=== PATIENT | female | born 2000 | race Caucasian/White ===

== ENCOUNTER 2024-03-26 07:54 | Emergency (ER) | payer MEDICAID, SELFPAY ==
[2024-03-26 07:54] VITALS: BP 117/66; PULSE 87; RESP 20; TEMP 36.2; O2SAT 100; BMI 28.9
--- NOTE | 2024-03-26 07:58 | EX.ED.DYSGE1 ---
HPI History of Present Illness Chief Complaint: Cold Sx Informant: patient Onset/Context/Timing Onset: Yesterday Context: Sudden Onset Timing: Continuous Quality: Congested Location: Upper respiratory tract Worsened by: Nothing Relieved by: Nothing Narrative Narrative: Patient presents with cough and congestion that began yesterday. Patient states it began rather suddenly. Patient states it has been constant. Patient admits to some rhinorrhea and sore throat. Patient also admits to some fullness in her ears. Patient admits to some subjective chills but denies any fevers. Patient admits to some nausea but denies any vomiting. Patient states she is coughing up some thick white sputum. Patient denies any chest pain. Patient denies any shortness of breath. Patient states she has been taking [id number]-[id number]-comycnr decongestants with no relief. Patient is also concerned about possible since she has not had a menstrual period this month. Patient denies any abdominal pain. PFSH PFSH Medical History no medical history no medical history Home Medications ?Medication ?Instructions ?Recorded ?Last Taken ?Type NK 03/26/24 Unknown History Allergy/AdvReac Type Severity Reaction Status Date / Time pineapple Allergy Intermediate Rash Verified 03/26/24 08:17 Surgical History Hx of wisdom tooth extraction Hx of section Social History Smoking Status: Current every day smoker tobacco type: cigarettes ROS ROS ED Constitutional Constitutional ED: Reports chills and subjective; Denies fever(s) Eyes Eyes: Reports blurry vision; Denies diplopia ENT ENT ED: Reports ear pain, rhinorrhea and sore throat Cardiovascular Cardiovascular: Denies chest pain or palpitations Respiratory/Chest Respiratory/Chest: Reports cough; Denies dyspnea Gastrointestinal Gastrointestinal: Reports nausea; Denies vomiting Genitourinary Genitourinary ED: Denies dysuria or hematuria Musculoskeletal Musculoskeletal: Reports back pain; Denies neck pain Integumentary Denies abscess or rash Neurologic Neurologic: Denies headache(s) or weakness Allergic/Immunologic Allergic/Immunologic ED: Denies mouth swelling or urticaria EXAM Physical Exam Const Vital Signs: 03/26/24 07:54 03/26/24 08:14 Temperature 97.1 F L Temperature Source Temporal Pulse Rate 87 Respiratory Rate 20 H Respiratory Effort Normal Respiratory Pattern Normal Blood Pressure 117/66 Blood Pressure Mean 83 Pulse Ox 100 Oxygen Delivery Method Room Air Positive well nourished and well developed General Appearance ED: well developed and NAD HEENT Reports TM's clear and moist mucous membranes Tympanic Membrane ED: Yes TM's clear bilateral Neck supple and no JVD Resp normal respiratory effort and clear to auscultation bilaterally Cardio regular rate and regular rhythm GI non-tender and non-distended Palpation: soft Extremity normal to inspection General Extremety ED: Negative for edema or tenderness General Extremity: Negative for edema Neuro oriented x3, CN's II-XII intact bilaterally and no sensory deficits noted Sensorium / Orientation: alert Motor Exam: strength 5/5 throughout Psych mental status grossly normal MDM MDM MDM Narrative Medical decision making narrative: Differential diagnosis includes viral upper respiratory infection, bronchitis, pneumonia, and . Chest x-ray will be obtained to assess for pneumonia and bronchitis. COVID-19, influenza, and RSV PCR will be obtained to assess for viral illness. Urine hCG will be obtained to assess for . Lab Data Attestation: I reviewed the patient's lab results. Lab results narrative: Urine hCG was reviewed and was negative. COVID-19 PCR was reviewed and was negative. Influenza PCR was reviewed and was negative for influenza A and influenza B. RSV PCR was reviewed and was positive. Labs: Laboratory Results - last 24 hr 03/26/24 08:18 Urine Test Negative Radiography Chest X-Ray - ED: 2 View, Read by ED Physician, Read by Radiologist and No Acute Disease Diagnostic Testing: PA and lateral chest x-ray was obtained. There are 2 views. On my independent interpretation, lung agudelo are clear. There is normal cardiac silhouette. Bony thorax is normal. There is no acute process noted. Radiologist also interpreted the x-ray and agrees. Treatment and Re-Evaluation :: Patient was advised of her findings. Patient was advised that this is a viral illness. Patient was instructed to stop smoking. Patient was instructed to follow-up with her primary care physician in 5 to 7 days. Patient instructed to take Tylenol or ibuprofen as needed for any aches or fevers. Patient was instructed to drink plenty of fluids. Patient was instructed return if worse in any way. Patient understood and was agreeable with the plan. All questions were answered. Discharge Plan Triage Chief Complaint: Cold Sx Other Complaint: Female C/O ED Provider: Micky Hanson Dx/Rx/DC Orders Clinical Impression: RSV (respiratory syncytial virus infection), Tobacco use Instructions: ED RSV Bronchiolitis Prescriptions: No Action NK Primary Care Provider: Care Physician,No Primary Referrals: NOT,DEFINED [Non-Staff] - 5-7 Days Print Language: Nicaraguan Disposition Disposition: Home, Self Care
--- NOTE | 2024-03-26 08:26 | RAD_ITS ---
HISTORY: Cough. TECHNIQUE: XR Chest 2 Views. COMPARISON: None. FINDINGS: CARDIOMEDIASTINAL BORDERS: Cardiac silhouette within normal limits in size. Mediastinal contour unremarkable. LUNGS: Radiographically clear. PLEURA: No pleural effusion or pneumothorax seen. OSSEOUS STRUCTURES: Unremarkable. RAD/Chest PA and Lateral IMPRESSION: No acute cardiopulmonary process identified. Electronically Signed: Zuleima Kingston MD at 10:10 EST ,
[2024-03-26 08:35] LABS: Internal QC Validated? YES +Cl - CLEAR BKGD; Pregnancy, Urine Negative Negative
[2024-03-26 09:30] VITALS: BP 117/66; PULSE 87; RESP 17; TEMP 36.5; O2SAT 100
== END 2024-03-26 09:34 | disposition home or self-care (01) ==
PROVIDERS: Emergency Provider Emergency Medicine; Visit Provider Emergency Medicine
DX: J06.9 Acute upper respiratory infection, unspecified (principal); B97.4 Respiratory syncytial virus as the cause of diseases classified elsewhere; F17.210 Nicotine dependence, cigarettes, uncomplicated; H92.09 Otalgia, unspecified ear
CPT/HCPCS: 71046; 81025; 87631; 99283

== ENCOUNTER 2024-04-29 10:04 | Emergency (ER) | payer MEDICAID, SELFPAY ==
[2024-04-29 10:04] VITALS: BP 118/77; PULSE 83; RESP 14; TEMP 36.6; O2SAT 98; BMI 28.5
--- NOTE | 2024-04-29 10:20 | ED.VIS.GI ---
HPI HPI - GI History of Present Illness Chief Complaint: Nausea/Vomiting Informant: patient Nausea/Vomiting/Emesis GI Symptom: Positive for Vomiting Onset: Today and Yesterday Severity: Moderate Diarrhea/Melena/Hematochezia GI Symptom: Positive for Diarrhea Onset: Today and Yesterday Stool Quality: Positive for Watery Severity: Moderate Associated Symptoms Associated Symptoms: Negative for Dysuria, Frequency, Hematuria or Urgency Narrative Narrative: 23-year-old female no significant past medical history. Said nausea, vomiting diarrhea and bodyaches since yesterday. She works at [employer]. Other people that have been ill. She denies any significant abdominal pain. No dysuria. Prior similar symptoms: Yes Recent Illness/Hospitalization: No PFSH PFSH Medical History no medical history no medical history Home Medications ?Medication ?Instructions ?Recorded ?Last Taken ?Type ondansetron 4 mg disintegrating 4 mg PO Q6H PRN nausea and 04/29/24 Unknown Rx tablet vomiting #7 tabs Allergy/AdvReac Type Severity Reaction Status Date / Time pineapple Allergy Intermediate Rash Verified 04/29/24 10:05 Family History no significant family his Surgical History Hx of wisdom tooth extraction Hx of section Social History household members: spouse and children Smoking Status: Current every day smoker tobacco type: cigarettes ROS ROS ED ROS Narrative Nausea, vomiting and diarrhea. Constitutional Constitutional ED: Denies chills or fever(s) ENT ENT ED: Denies ear pain Cardiovascular Cardiovascular: Denies chest pain Respiratory/Chest Respiratory/Chest: Denies cough or dyspnea Gastrointestinal Gastrointestinal: Reports diarrhea, nausea and vomiting; Denies abdominal pain, constipation or melena Genitourinary Genitourinary ED: Denies dysuria or hematuria Musculoskeletal Musculoskeletal: Denies arthralgias Neurologic Neurologic: Denies headache(s) Psychiatric Psychiatric: Denies anxiety Endocrine Endocrinology: Denies polydipsia Hematologic/Lymphatic Hematologic/Lymphatic: Denies easy bleeding Allergic/Immunologic Allergic/Immunologic ED: Denies mouth swelling EXAM Physical Exam Narrative Exam Narrative: Well-appearing 23-year-old female. Vital signs stable afebrile. Does not look septic or toxic. H EENT exam pupils round reactive light. Dry mucous membranes. Neck nontender no lymphadenopathy. Back nontender. Lungs clear equal symmetrical bilaterally. Heart regular rhythm rate about 80 no murmur. Chest wall and ribs nontender. Abdomen soft, nontender, nondistended, normal bowel sounds without peritoneal signs. No hernia or mass. No distention. No localizing tenderness. Moving all 4 extremities. Nontender no edema. Normal range of motion. Normal strength. Awake and alert no focal motor deficits. Benign exam. Clinically dehydrated. Const Vital Signs: 04/29/24 10:04 Temperature 98 F Temperature Source Oral Pulse Rate 83 Respiratory Rate 14 Blood Pressure 118/77 Blood Pressure Mean 90 Pulse Ox 98 Oxygen Delivery Method Room Air Positive well nourished and well developed; Negative for obese, cachectic, contractures or unkempt General Appearance ED: well developed and NAD; Negative for unkempt, cachectic, contractures or pallor Nutritional Appearance: Negative for cachectic or obese HEENT Reports dry mucous membranes; Denies moist mucous membranes normocephalic and atraumatic Mouth ED: Yes dry mucous membranes Mouth: dry mucous membranes Eyes PERRL and EOMs intact bilaterally General Eye ED: Negative for pale conjunctiva or scleral icterus Neck no lymphadenopathy, supple and no JVD General: Negative for tenderness Resp normal respiratory effort and clear to auscultation bilaterally Effort and Inspection: Negative for respiratory distress, retractions or pain with movement Auscultation: Negative for rales, rhonchi or wheezes Cardio regular rate, regular rhythm, S1 normal heart sound, S2 normal heart sound and no murmurs Rate: Negative for bradycardia or tachycardic Rhythm: Negative for abnormal rhythm GI non-tender, non-distended and no masses Inspection: Negative for abdominal distention Palpation: soft; Negative for tender, guarding, hernia, mass or rebound tenderness present Back/Spine no CVA tenderness General Back: Negative for CVA tenderness Cervical Spine: Negative for cervical spine tenderness Thoracic Spine / Upper Back: Negative for thoracic spinal tenderness Lumbar Spine / Lower Back: Negative for lumbar spinal tenderness Extremity full ROM General Extremety ED: Negative for edema or tenderness General Extremity: Negative for edema Neuro CN's II-XII intact bilaterally and moves all extremities Sensorium / Orientation: alert, oriented to person, oriented to place and oriented to time; Negative for orientation impaired or confused Motor Exam: strength 5/5 throughout Psych mental status grossly normal and thought process normal Appearance: Negative for unkempt Attitude: No agitated Mood & Affect: Negative for depressed, anxious or tearful Skin no wounds General Skin Exam: Negative for jaundice or pallor Lesions: no lesions Rashes: no rashes Trauma: Negative for abrasion Nails: Negative for discolored MDM MDM MDM Narrative Medical decision making narrative: 23-year-old female nausea vomiting diarrhea consistent with viral gastroenteritis. Abdomen is benign. She does not need any labs definitely does not need any imaging. She will be treated with IV Zofran for nausea, IV fluids and p.o. fluid challenge and reassessed. Repeat exam patient is doing well at 11:35 AM. Two thirds of her IV fluids are in. She drank some water. She is going to the bathroom to urinate right now. Exam is benign. She is comfortable being discharged home and treated for viral gastroenteritis. History & Record Review Discussion w/independent historian: Patient Additional record(s) reviewed:: Prior inpatient record, Prior outpatient record, Prior ED visit and Prior labs Discharge Plan Triage Chief Complaint: Nausea/Vomiting ED Provider: Ish Marte Dx/Rx/DC Orders Clinical Impression: Viral gastroenteritis, Acute dehydration Instructions: ED Dehydration (Adult), ED Gastroenteritis, Viral (Adult) Prescriptions: New ondansetron 4 mg tablet,disintegrating 4 mg PO Q6H PRN (Reason: nausea and vomiting) Qty: 7 0RF Primary Care Provider: Care Physician,No Primary Referrals: Heath Hoffman MD [Med Staff - Financial Coordinator] - As Needed Care Physician,No Primary [Primary Care Provider] - Activity Restrictions/Additional Instructions: Plenty of fluids and rest. Slowly increase your diet as tolerated. Start with water, 7-Up and Gatorade. Zofran as needed for nausea. Follow-up with your doctor as needed or return if worse if unable to keep fluids down. Print Language: Afghan Disposition Disposition: Home, Self Care
[2024-04-29] MEDS: 0.9% Normal Saline (1000mL) 1,000 ML 1000 ML IV (10:27)
[2024-04-29] MEDS: Ondansetron 4 MG/2 ML Vial IV (10:29)
--- NOTE | 2024-04-29 11:25 | CM.ED ---
Social work Reason for referral: no PCP Referral source: case find This SW identified patient's lack of PCP and need for resources. This SW entered patient's room, introducing self and role at [facility]. Patient accepted SW visit and stated patient had moved to [place] from [place] about 3 months ago. Patient stated not having a PCP yet and was grateful for resources of [facility] Provider Directory and Sophie Morley information. Patient stated having no further needs at this time and needing no other supports currently. Francesca Garcia, [employer], INTERNET SYSTEMS ADMINISTRATOR
[2024-04-29 11:40] VITALS: BP 112/67; PULSE 77; RESP 14; TEMP 36.6; O2SAT 98
== END 2024-04-29 11:57 | disposition home or self-care (01) ==
PROVIDERS: Emergency Provider Emergency Medicine; Visit Provider Emergency Medicine
DX: A08.4 Viral intestinal infection, unspecified (principal); F17.210 Nicotine dependence, cigarettes, uncomplicated; E86.0 Dehydration
CPT/HCPCS: 96361; 96374; 99282; A4216; J2405